=== PATIENT | male | born 2000 | race Caucasian/White ===

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

== ENCOUNTER 2023-05-02 09:12 | Emergency (ER) | payer BC, SELFPAY ==
--- NOTE | 2023-05-02 09:14 | ED.LOWEXIN ---
HPI - Extremity Injury (Lower) General Chief Complaint: Unspecified Stated Complaint: infection right gt toe History of Present Illness HPI Narrative: Patient is a healthy 22 year old male here with toe pain. Patient notes that 2.5-3 weeks ago he pulled at a hang nail on his right great toe. Since that time he has had some worsening pain and swelling in this area. He notes it was initially red, firm and occasionally purple. He travels for work, has been staying in a hotel and performing hot water soaks to attempt to keep the area clean. The area was initially quite firm and since doing hot water soaks, he believes it has gotten much softer. He has attempted to squeeze the area to try and see if pus would come out of it, has not had any drainage. He denies fever or chills. No history of DM or prior foot infections. Related Data Allergies Allergy/AdvReac Type Severity Reaction Status Date / Time cat dander Allergy Mild unknown Verified 07/08/22 10:58 Review of Systems Review of Systems: All systems reviewed & are unremarkable except as noted in HPI and below PMFSH Family History Family History Father Diabetes mellitus Family history of sleep apnea Other Asthma Family history of arthritis Social History Social History Smoking status: Current every day smoker Tobacco type: e-cigarettes/vaping Second hand tobacco smoke exposure: No Alcohol intake: never Lack of Transportation: No Lack of Food: Never True Current Housing: I Have Housing Concerned About Future Housing: No Difficulty Paying Gas/Electric Bills: No Difficulty Paying for Meds: No Currently Unemployed: No Education: High School Diploma/GED Difficulty w/ Childcare or Family Care: YES Exam Narrative: GENERAL: Well-appearing, well-nourished, and in no acute distress. HEAD: Normocephalic, atraumatic. EYES: PERRLA and EOMI. ENT: Nares clear. Mucous membranes moist. NECK: Supple. CHEST: Unlabored respirations HEART: Normal peripheral pulses. EXTREMITIES: Normal range of motion. No edema. SKIN: Warm, dry, erythema to the medial edge of the right great toe nail, tender to touch, no obvious fluctuance, no open wound appreciated. NEURO: No focal deficits. Alert and oriented x3. Course Course Emergency Course: Chart review performed. Patient here for R great toe infection. PCP well visit on 07/08/22 reviewed, no significant history noted. Patient seen and evaluated. Clinically appears to have paronychia vs abscess vs infected ingrown toe nail. Discussed plan for podiatry referral. Will attempt I&D and initiate antibiotics. LET gel applied to toe and ice pack. Will wait for 30 minutes to perform I&D for possible paronychia. I and D attempt performed. No purulence discharge. Will start on Keflex. Advise follow-up with Podiatry and PCP. The results of pertinent diagnostic studies and exam findings were discussed. The patient?s provisional diagnosis and plan of care were discussed with the patient and present family. The patient and/or present family expressed understanding of the diagnosis and plan. The nurse was instructed to provide written instructions and appropriate follow-up information. The patient understands their need and responsibility to obtain additional follow-up as instructed. The risks of medications administered and prescribed were discussed with the patient and family present. Vital Signs Vital signs: Vital Signs Temperature 98.2 F 05/02/23 09:15 Pulse Rate 77 05/02/23 09:15 Respiratory Rate 22 H 05/02/23 09:15 Blood Pressure 156/92 H 05/02/23 09:15 Pulse Oximetry 98 05/02/23 09:15 Oxygen Delivery Room Air 05/02/23 09:15 Temperature 98.2 F 05/02/23 09:15 Pulse Rate 77 05/02/23 09:15 Respiratory Rate 22 H 05/02/23 09:15 Blood Pressure 156/92 H 05/02/23 09:15 Pulse Oxim
[2023-05-02 09:15] VITALS: BP 156/92; PULSE 77; RESP 22; TEMP 36.8; O2SAT 98
[2023-05-02] MEDS: LIDOCAINE HCL 1% LOCAL INJ 10 ML VIAL 5 ML INFILTRATE (10:15)
[2023-05-02] MEDS: LIDOCAINE, EPINEPHRINE, TETRACAINE VISCOUS SOLN 3 ML TOPICAL (10:15)
== END 2023-05-02 11:23 | disposition home or self-care (01) ==
PROVIDERS: Emergency Provider Student in an Organized Health Care Education/Training Program; PCP Physician Assistant
DX: L03.031 Cellulitis of right toe (principal); F17.290 Nicotine dependence, other tobacco product, uncomplicated
CPT/HCPCS: 10060; 99283

== ENCOUNTER 2024-08-11 11:43 | Outpatient (CLI) | payer BC, SELFPAY ==
[2024-08-11 11:54] LABS: Hematocrit 49.1 % (40.0-54.0); Hemoglobin 16.3 g/dL (14.0-18.0); Mean Corpuscular HGB Conc 33.2 g/dL (32-36); Mean Corpuscular Hemoglobin 29.1 pg (27.0-31.0); Mean Corpuscular Volume 87.7 fL (78.0-102.0); Mean Platelet Volume 10.1 fl (8.7-11.0); Platelet Count Result 276 K/mm3 (150-420); Red Cell Distribution Width 11.9 % (11.6-14.4); White Blood Count 6.7 K/mm3 (4.8-10.8)
[2024-08-11 14:24] LABS: Alanine Aminotransferase 34 U/L (16-63); Albumin Level 4.3 g/dL (3.4-5.0); Alkaline Phosphatase 67 U/L (46-116); Anion Gap 9 mmol/L (4-12); Aspartate Amino Transferase 13 U/L (15-37); Bilirubin,Total 0.5 mg/dL (0.00-1.00); Blood Urea Nitrogen 11 mg/dL (7-18); Calcium 9.1 mg/dL (8.5-10.1); Carbon Dioxide 26 mmol/L (21-32); Chloride 104 mmol/L (98-108); Cholesterol 189 mg/dL (0-200); Estimated Glomerular Filt Rate > 60; Glucose 85 mg/dL (70-99); HDL Direct 70 mg/dL (40-60); LDL Cholesterol Calculated 114 mg/dL (<130); Osmolality Calculated 286 mOsm/kg (285-295); Potassium 4.3 mmol/L (3.5-5.1); Sodium 139 mmol/L (136-145); Thyroid Stimulating Hormone 1.23 uIU/mL (0.36-3.74); Total Protein 7.5 g/dL (6.4-8.2); Triglycerides 26 mg/dL (0-150)
[2024-08-11 14:28] LABS: Hemoglobin A1C 5.1 % (<5.7)
== END 2024-08-11 11:44 | disposition home or self-care (01) ==
PROVIDERS: PCP Nurse Practitioner; Visit Provider Nurse Practitioner
DX: Z00.00 Encounter for general adult medical examination without abnormal findings (principal)
CPT/HCPCS: 36415; 80053; 80061; 83036; 84443; 85027